=== PATIENT | male | born 1940 | race Caucasian/White ===

== ENCOUNTER 2021-05-08 17:23 | Emergency (ER) | payer MEDICARE ==
[~2021-05-08] VITALS: Ht 182.9 cm; Wt 100.0 kg
[~2021-05-08 17:23] MED LIST: ASPIRIN EC81 MG PO; ATENOLOL25 MG PO; DIGOX0.25 MG PO; DILTIAZEM60 M1 PO; FUROSEMIDE40 MG PO; GLIPIZIDE ER5 MG PO; GLIPIZIDE5 M2 OR; HYDROXYZ HCL25 MG PO; KEFLEX500 MG PO; LEVITRA10 MG PO; LIPITOR20 M1 PO; LISINOPRIL5 MG PO; LOVASTATIN40 MG PO; METFORMIN500 MG PO; ONE TOUCH ULTRA 100 SC; PRILOSEC40 MG PO; SOLU-MEDROL125 MG IM; TRIAMCINOLON0.11 EX; XARELTO20 MG PO
[2021-05-08] MEDS ORDERED: BUMETANIDE1 MG PO (17:45)
[2021-05-08 18:37] LABS: HEMATOCRIT 34.2 % (39.0-50.0); HEMOGLOBIN 11.1 g/dl (14.0-18.0); IMMATURE GRANULOCYTES 0.2 % (0.0-5.0); MEAN CELL VOLUME 94.5 fL CALC (80.0-100.0); MEAN CORPUSCULAR HGB 30.7 pG CALC (26.0-32.0); MEAN CORPUSCULAR HGB CONC 32.5 g/dL CAL (32.0-36.0); NEUT# 8.77 thou/uL (1.82-7.42); RED BLOOD COUNT 3.62 mill/uL (4.70-6.10); RED CELL DISTRI WIDTH 13.5 % (11.5-15.5)
[2021-05-08] MEDS ORDERED: TRESIBA FL100 UNIT/M SC (18:45)
[2021-05-08] MEDS ORDERED: KAPSPARGO SPRIN50 MG PO (18:47)
[2021-05-08 18:48] LABS: ALBUMIN 3.7 g/dL (3.2-5.0); ALKALINE PHOSPHATASE 57 u/l (38-126); ANION GAP 13 (6-22 (CALC)); BILIRUBIN, TOTAL 0.5 mg/dL (0.0-1.4); BUN 38 mg/dL (8-23); BUN/CREATININE RATIO 21 (12-20 (CALC)); CARBON DIOXIDE 28 mmol/l (22-30); CHLORIDE 104 mmol/l (95-108); CREATININE 1.8 mg/dL (0.7-1.3); GFR 37 ML/MIN (>=60 (CALC)); GFR FOR AFR.AMER. 44 ML/MIN (>=60 (CALC)); SGOT/AST 24 u/l (19-48); SODIUM 140 mmol/l (137-146); TOTAL PROTEIN 6.7 g/dL (6.3-8.2)
[2021-05-08] MEDS ORDERED: MEMANTINE HYDRO10 MG PO (18:50)
[2021-05-08] MEDS ORDERED: LOSARTAN POTASS50 MG PO (18:50)
[2021-05-08 18:58] LABS: POTASSIUM 4.6 mmol/l (3.5-5.1)
[2021-05-08 19:00] LABS: MYOGLOBIN 118 ng/mL (0 - 121)
[2021-05-08 22:49] VITALS: BP 122/69
== END 2021-05-08 23:00 | disposition home or self-care (01) ==
LOC: ED 17:23
PROVIDERS: Emergency Medicine
DX: I48.91 Unspecified atrial fibrillation (principal); R60.0 Localized edema; I11.0 Hypertensive heart disease with heart failure; I50.9 Heart failure, unspecified; E11.9 Type 2 diabetes mellitus without complications; E78.5 Hyperlipidemia, unspecified; Z79.84 Long term (current) use of oral hypoglycemic drugs; Z79.4 Long term (current) use of insulin
CPT/HCPCS: Q9967

== ENCOUNTER 2021-10-22 20:27 | Emergency (ER) | payer MEDICARE ==
[2021-10-22] VITALS (12 sets, daily range): BP systolic 114–147; BP diastolic 68–88
[~2021-10-22] VITALS: Ht 182.9 cm; Wt 105.0 kg
[~2021-10-22 20:27] MED LIST changes: +BUMETANIDE1 MG PO; +KAPSPARGO SPRIN50 MG PO; +LOSARTAN POTASS50 MG PO; +MEMANTINE HYDRO10 MG PO; +TRESIBA FL100 UNIT/M SC
[2021-10-22 21:07] LABS: HEMATOCRIT 38.5 % (39.0-50.0); HEMOGLOBIN 12.3 g/dl (14.0-18.0); IMMATURE GRANULOCYTES 0.2 % (0.0-5.0); MEAN CELL VOLUME 96.3 fL CALC (80.0-100.0); MEAN CORPUSCULAR HGB 30.8 pG CALC (26.0-32.0); MEAN CORPUSCULAR HGB CONC 31.9 g/dL CAL (32.0-36.0); NEUT# 6.13 thou/uL (1.82-7.42); RED CELL DISTRI WIDTH 13.9 % (11.5-15.5)
[2021-10-22 21:22] LABS: ALBUMIN 3.8 g/dL (3.2-5.0); ALKALINE PHOSPHATASE 76 u/l (38-126); ANION GAP 12 (6-22 (CALC)); BILIRUBIN, TOTAL 0.6 mg/dL (0.0-1.4); BUN 25 mg/dL (8-23); BUN/CREATININE RATIO 15 (12-20 (CALC)); CARBON DIOXIDE 29 mmol/l (22-30); CHLORIDE 102 mmol/l (95-108); CREATININE 1.6 mg/dL (0.7-1.3); GFR FOR AFR.AMER. 51 ML/MIN (>=60 (CALC)); GFR OTHER RACES 42 ML/MIN (>=60 (CALC)); POTASSIUM 4.1 mmol/l (3.5-5.1); SGOT/AST 18 u/l (19-48); SODIUM 139 mmol/l (137-146); TOTAL PROTEIN 6.8 g/dL (6.3-8.2)
[2021-10-22 21:24] LABS: D-DIMER 0.67 mg/L (0.19-0.60)
[2021-10-22 21:34] LABS: MYOGLOBIN 53 ng/mL (0 - 121)
[2021-10-22 21:38] LABS: ACT PARTIAL THROMBO TIME 26.2 SECONDS (20.0-32.5)
[2021-10-22 22:21] LABS: URINE BILIRUBIN - DIPSTICK NEGATIVE (NEGATIVE); URINE BLOOD DIPSTICK LARGE (NEGATIVE); URINE COLOR YELLOW; URINE GLUCOSE - DIPSTICK >=1000 mg/dL (NEGATIVE); URINE KETONE NEGATIVE (NEGATIVE); URINE LEUK ESTERASE NEGATIVE (NEGATIVE); URINE PH 5.5 (4.5-8.0); URINE PROTEIN - DIPSTICK NEGATIVE (NEG-TRACE); URINE SPECIFIC GRAVITY >=1.030; URINE UROBILINOGEN - DIPSTICK 0.2 E.U./dL (0.2)
[2021-10-22 22:23] LABS: URINE NITRITE - DIPSTICK NEGATIVE (Negative)
[2021-10-22 22:41] LABS: URINE WBC 0-2 WBC/hpf (0-5)
== END 2021-10-22 23:07 | disposition home or self-care (01) ==
LOC: ED 20:27
PROVIDERS: Family Medicine
DX: R60.0 Localized edema (principal); R53.1 Weakness; I11.0 Hypertensive heart disease with heart failure; I50.9 Heart failure, unspecified; E11.9 Type 2 diabetes mellitus without complications; I48.91 Unspecified atrial fibrillation; F03.90 Unspecified dementia, unspecified severity, without behavioral disturbance, psychotic disturbance, mood disturbance, and anxiety; Z79.84 Long term (current) use of oral hypoglycemic drugs; Z79.4 Long term (current) use of insulin; Z20.822 Contact with and (suspected) exposure to COVID-19

== ENCOUNTER 2022-03-23 14:23 | Inpatient (IN) | payer MEDICARE ==
[~2022-03-23] VITALS: Ht 182.9 cm; Wt 96.6 kg
[2022-03-23] VITALS (16 sets, daily range): BP systolic 104–161; BP diastolic 58–87
[2022-03-23 16:49] LABS: HEMATOCRIT 38.6 % (39.0-50.0); HEMOGLOBIN 12.9 g/dl (14.0-18.0); IMMATURE GRANULOCYTES 0.2 % (0.0-5.0); MEAN CORPUSCULAR HGB 30.4 pG CALC (26.0-32.0); MEAN CORPUSCULAR HGB CONC 33.4 g/dL CAL (32.0-36.0); NEUT# 13.04 thou/uL (1.82-7.42); RED BLOOD COUNT 4.24 mill/uL (4.70-6.10); RED CELL DISTRI WIDTH 13.5 % (11.5-15.5)
[2022-03-23 16:58] LABS: ALBUMIN 4.4 g/dL (3.2-5.0); ALKALINE PHOSPHATASE 83 u/l (38-126); ANION GAP 17 (6-22 (CALC)); BILIRUBIN, TOTAL 0.8 mg/dL (0.0-1.4); BUN 26 mg/dL (8-23); BUN/CREATININE RATIO 19 (12-20 (CALC)); CARBON DIOXIDE 26 mmol/l (22-30); CHLORIDE 101 mmol/l (95-108); CREATININE 1.4 mg/dL (0.7-1.3); GFR FOR AFR.AMER. 59 ML/MIN (>=60 (CALC)); GFR OTHER RACES 49 ML/MIN (>=60 (CALC)); POTASSIUM 3.8 mmol/l (3.5-5.1); SGOT/AST 31 u/l (19-48); SODIUM 140 mmol/l (137-146); TOTAL PROTEIN 7.7 g/dL (6.3-8.2)
[2022-03-23 19:12] LABS: URINE BILIRUBIN - DIPSTICK NEGATIVE (NEGATIVE); URINE BLOOD DIPSTICK SMALL (NEGATIVE); URINE COLOR YELLOW; URINE GLUCOSE - DIPSTICK NEGATIVE (NEGATIVE); URINE KETONE NEGATIVE (NEGATIVE); URINE LEUK ESTERASE NEGATIVE (NEGATIVE); URINE PROTEIN - DIPSTICK NEGATIVE (NEG-TRACE); URINE UROBILINOGEN - DIPSTICK 0.2 E.U./dL (0.2)
[2022-03-23 19:14] LABS: URINE NITRITE - DIPSTICK NEGATIVE (Negative)
[2022-03-23 19:21] LABS: URINE RBC 0-2 RBC/hpf (0-5)
[2022-03-24] VITALS (38 sets, daily range): BP systolic 116–156; BP diastolic 60–93
[2022-03-24 05:55] LABS: HEMOGLOBIN 11.6 g/dl (14.0-18.0); MEAN CELL VOLUME 94.5 fL CALC (80.0-100.0); MEAN CORPUSCULAR HGB 30.4 pG CALC (26.0-32.0); MEAN CORPUSCULAR HGB CONC 32.2 g/dL CAL (32.0-36.0); RED BLOOD COUNT 3.81 mill/uL (4.70-6.10); RED CELL DISTRI WIDTH 13.9 % (11.5-15.5)
[2022-03-24 06:55] LABS: ANION GAP 9 (6-22 (CALC)); BUN 23 mg/dL (8-23); BUN/CREATININE RATIO 19 (12-20 (CALC)); CARBON DIOXIDE 29 mmol/l (22-30); CHLORIDE 105 mmol/l (95-108); CREATININE 1.2 mg/dL (0.7-1.3); GFR FOR AFR.AMER. > 60 ML/MIN (>=60 (CALC)); GFR OTHER RACES 58 ML/MIN (>=60 (CALC)); MAGNESIUM 1.6 mg/dL (1.6-2.3); POTASSIUM 3.4 mmol/l (3.5-5.1); SODIUM 140 mmol/l (137-146)
[2022-03-25] VITALS (35 sets, daily range): BP systolic 128–179; BP diastolic 58–107
[2022-03-25 05:47] LABS: HEMATOCRIT 33.7 % (39.0-50.0); HEMOGLOBIN 10.8 g/dl (14.0-18.0); MEAN CELL VOLUME 95.2 fL CALC (80.0-100.0); MEAN CORPUSCULAR HGB 30.5 pG CALC (26.0-32.0); RED BLOOD COUNT 3.54 mill/uL (4.70-6.10); RED CELL DISTRI WIDTH 13.9 % (11.5-15.5)
[2022-03-25 05:55] LABS: ANION GAP 8 (6-22 (CALC)); BUN 14 mg/dL (8-23); BUN/CREATININE RATIO 13 (12-20 (CALC)); CARBON DIOXIDE 30 mmol/l (22-30); CHLORIDE 105 mmol/l (95-108); CREATININE 1.1 mg/dL (0.7-1.3); GFR FOR AFR.AMER. > 60 ML/MIN (>=60 (CALC)); GFR OTHER RACES > 60 ML/MIN (>=60 (CALC)); MAGNESIUM 1.9 mg/dL (1.6-2.3); POTASSIUM 3.6 mmol/l (3.5-5.1); SODIUM 139 mmol/l (137-146)
[2022-03-25] MEDS ORDERED: VITAMIN B-12500 MCG PO (11:36)
[2022-03-25] MEDS ORDERED: PREDNISONE10 MG PO (11:37)
[2022-03-25] MEDS ORDERED: CLOPIDOGREL75 MG PO (11:39)
[2022-03-26] VITALS (11 sets, daily range): BP systolic 117–153; BP diastolic 62–83
[2022-03-26 05:23] LABS: HEMATOCRIT 31.3 % (39.0-50.0); HEMOGLOBIN 10.3 g/dl (14.0-18.0); MEAN CELL VOLUME 93.7 fL CALC (80.0-100.0); MEAN CORPUSCULAR HGB 30.8 pG CALC (26.0-32.0); MEAN CORPUSCULAR HGB CONC 32.9 g/dL CAL (32.0-36.0); RED BLOOD COUNT 3.34 mill/uL (4.70-6.10); RED CELL DISTRI WIDTH 13.7 % (11.5-15.5)
[2022-03-26 05:38] LABS: ANION GAP 6 (6-22 (CALC)); BUN 14 mg/dL (8-23); BUN/CREATININE RATIO 14 (12-20 (CALC)); CARBON DIOXIDE 30 mmol/l (22-30); CHLORIDE 104 mmol/l (95-108); CREATININE 1.1 mg/dL (0.7-1.3); GFR FOR AFR.AMER. > 60 ML/MIN (>=60 (CALC)); GFR OTHER RACES > 60 ML/MIN (>=60 (CALC)); MAGNESIUM 1.9 mg/dL (1.6-2.3); POTASSIUM 3.3 mmol/l (3.5-5.1); SODIUM 136 mmol/l (137-146)
[2022-03-27] VITALS (8 sets, daily range): BP systolic 124–158; BP diastolic 61–78
[2022-03-27 05:46] LABS: HEMOGLOBIN 10.8 g/dl (14.0-18.0); IMMATURE GRANULOCYTES 0.5 % (0.0-5.0); MEAN CELL VOLUME 93.5 fL CALC (80.0-100.0); MEAN CORPUSCULAR HGB 30.6 pG CALC (26.0-32.0); MEAN CORPUSCULAR HGB CONC 32.7 g/dL CAL (32.0-36.0); NEUT# 5.47 thou/uL (1.82-7.42); RED BLOOD COUNT 3.53 mill/uL (4.70-6.10); RED CELL DISTRI WIDTH 13.5 % (11.5-15.5)
[2022-03-27 05:59] LABS: ANION GAP 8 (6-22 (CALC)); BILIRUBIN, TOTAL 0.6 mg/dL (0.0-1.4); BUN 15 mg/dL (8-23); BUN/CREATININE RATIO 14 (12-20 (CALC)); CARBON DIOXIDE 30 mmol/l (22-30); CHLORIDE 104 mmol/l (95-108); GFR FOR AFR.AMER. > 60 ML/MIN (>=60 (CALC)); GFR OTHER RACES > 60 ML/MIN (>=60 (CALC)); MAGNESIUM 1.8 mg/dL (1.6-2.3); POTASSIUM 3.6 mmol/l (3.5-5.1); SGOT/AST 26 u/l (19-48); SODIUM 139 mmol/l (137-146)
[2022-03-27 06:05] LABS: ALBUMIN 2.8 g/dL (3.2-5.0); ALKALINE PHOSPHATASE 140 u/l (38-126); TOTAL PROTEIN 5.2 g/dL (6.3-8.2)
[2022-03-28] VITALS (7 sets, daily range): BP systolic 121–151; BP diastolic 57–71
[2022-03-28 05:10] LABS: HEMATOCRIT 32.2 % (39.0-50.0); HEMOGLOBIN 10.5 g/dl (14.0-18.0); MEAN CELL VOLUME 93.6 fL CALC (80.0-100.0); MEAN CORPUSCULAR HGB 30.5 pG CALC (26.0-32.0); MEAN CORPUSCULAR HGB CONC 32.6 g/dL CAL (32.0-36.0); RED BLOOD COUNT 3.44 mill/uL (4.70-6.10); RED CELL DISTRI WIDTH 13.1 % (11.5-15.5)
[2022-03-28 05:26] LABS: ANION GAP 7 (6-22 (CALC)); BUN 16 mg/dL (8-23); BUN/CREATININE RATIO 14 (12-20 (CALC)); CARBON DIOXIDE 31 mmol/l (22-30); CHLORIDE 104 mmol/l (95-108); CREATININE 1.1 mg/dL (0.7-1.3); GFR FOR AFR.AMER. > 60 ML/MIN (>=60 (CALC)); GFR OTHER RACES > 60 ML/MIN (>=60 (CALC)); MAGNESIUM 1.8 mg/dL (1.6-2.3); POTASSIUM 3.9 mmol/l (3.5-5.1); SODIUM 138 mmol/l (137-146)
[2022-03-28 05:27] LABS: DIGOXIN 0.5 ng/mL (0.8-2.0)
[2022-03-29 04:00] VITALS: BP 130/63
[2022-03-29 04:11] VITALS: BP 130/63
[2022-03-29 07:11] VITALS: BP 141/76
[2022-03-29 11:09] VITALS: BP 151/77
[2022-03-29 14:20] VITALS: BP 143/76
[2022-03-29 19:13] VITALS: BP 116/63
[2022-03-30] VITALS: BP 132/54
[2022-03-30 04:29] VITALS: BP 133/74
[2022-03-30 05:25] LABS: HEMATOCRIT 31.3 % (39.0-50.0); HEMOGLOBIN 10.2 g/dl (14.0-18.0); IMMATURE GRANULOCYTES 0.7 % (0.0-5.0); MEAN CELL VOLUME 92.6 fL CALC (80.0-100.0); MEAN CORPUSCULAR HGB 30.2 pG CALC (26.0-32.0); MEAN CORPUSCULAR HGB CONC 32.6 g/dL CAL (32.0-36.0); NEUT# 5.45 thou/uL (1.82-7.42); RED BLOOD COUNT 3.38 mill/uL (4.70-6.10); RED CELL DISTRI WIDTH 13.2 % (11.5-15.5)
[2022-03-30 05:51] LABS: ANION GAP 10 (6-22 (CALC)); BUN 17 mg/dL (8-23); BUN/CREATININE RATIO 13 (12-20 (CALC)); CARBON DIOXIDE 30 mmol/l (22-30); CHLORIDE 102 mmol/l (95-108); CREATININE 1.3 mg/dL (0.7-1.3); GFR FOR AFR.AMER. > 60 ML/MIN (>=60 (CALC)); GFR OTHER RACES 53 ML/MIN (>=60 (CALC)); SODIUM 138 mmol/l (137-146)
[2022-03-30 06:41] VITALS: BP 133/74
[2022-03-30 09:12] VITALS: BP 110/56
[2022-03-30] MEDS ORDERED: KEFLEX500 MG PO (09:24)
[2022-03-30] MEDS ORDERED: LEVAQUIN750 M1 PO (09:24)
[2022-03-30] MEDS ORDERED: TRAMADOL HCL50 MG PO (09:25)
[2022-03-30 10:15] VITALS: BP 110/56
== END 2022-03-30 13:45 | disposition home health service (06) | DRG 872 ==
LOC: ED 14:23 → MS2 18:54 → ICU 20:50 → MS2 03-25 14:30
PROVIDERS: Family Medicine; Internal Medicine; Nurse Practitioner Family; ADMIT Internal Medicine; ATTEND Internal Medicine
DX: A41.53 Sepsis due to Serratia (principal); L03.115 Cellulitis of right lower limb; E87.20 Acidosis, unspecified; L97.919 Non-pressure chronic ulcer of unspecified part of right lower leg with unspecified severity; I50.32 Chronic diastolic (congestive) heart failure; I13.0 Hypertensive heart and chronic kidney disease with heart failure and stage 1 through stage 4 chronic kidney disease, or unspecified chronic kidney disease; I48.19 Other persistent atrial fibrillation; E11.22 Type 2 diabetes mellitus with diabetic chronic kidney disease; N18.30 Chronic kidney disease, stage 3 unspecified; E11.649 Type 2 diabetes mellitus with hypoglycemia without coma; E78.5 Hyperlipidemia, unspecified; F03.90 Unspecified dementia, unspecified severity, without behavioral disturbance, psychotic disturbance, mood disturbance, and anxiety; I35.1 Nonrheumatic aortic (valve) insufficiency; M35.3 Polymyalgia rheumatica; I89.0 Lymphedema, not elsewhere classified; G47.33 Obstructive sleep apnea (adult) (pediatric); B95.61 Methicillin susceptible Staphylococcus aureus infection as the cause of diseases classified elsewhere; Z79.84 Long term (current) use of oral hypoglycemic drugs; Z79.4 Long term (current) use of insulin; Z95.818 Presence of other cardiac implants and grafts; Z79.52 Long term (current) use of systemic steroids; Z86.16 Personal history of COVID-19; Z20.822 Contact with and (suspected) exposure to COVID-19
CPT/HCPCS: J0131; J0692; J1160; J1650

== ENCOUNTER 2022-11-16 06:10 | Day surgery (SDC) | payer MEDICARE ==
[~2022-11-16] VITALS: Ht 182.9 cm; Wt 92.5 kg
[~2022-11-16 06:10] MED LIST changes: +CLOPIDOGREL75 MG PO; +LEVAQUIN750 M1 PO; +PREDNISONE10 MG PO; +TRAMADOL HCL50 MG PO; +VITAMIN B-12500 MCG PO
[2022-11-16 10:58] VITALS: BP 140/67
== END 2022-11-16 10:45 | disposition home or self-care (01) ==
LOC: ENDO 06:10 → ORM 06:10
PROVIDERS: ATTEND Orthopaedic Surgery
PROC: 0RRJ00Z Replacement of Right Shoulder Joint with Reverse Ball and Socket Synthetic Substitute, Open Approach (ICD-10-PCS; principal; 2022-11-16)
PROC: 0LS30ZZ Reposition Right Upper Arm Tendon, Open Approach (ICD-10-PCS; 2022-11-16)
DX: M75.121 Complete rotator cuff tear or rupture of right shoulder, not specified as traumatic (principal); S43.431A Superior glenoid labrum lesion of right shoulder, initial encounter; S46.211A Strain of muscle, fascia and tendon of other parts of biceps, right arm, initial encounter; M19.011 Primary osteoarthritis, right shoulder; X58.XXXA Exposure to other specified factors, initial encounter; M19.012 Primary osteoarthritis, left shoulder; M75.112 Incomplete rotator cuff tear or rupture of left shoulder, not specified as traumatic; E11.9 Type 2 diabetes mellitus without complications; I10 Essential (primary) hypertension; Z79.84 Long term (current) use of oral hypoglycemic drugs
CPT/HCPCS: J0690

== ENCOUNTER 2023-12-09 10:18 | Emergency (ER) | payer MEDICARE ==
[~2023-12-09] VITALS: Ht 182.9 cm; Wt 95.2 kg
[2023-12-09] VITALS (7 sets, daily range): BP systolic 119–141; BP diastolic 62–112
[2023-12-09 10:47] LABS: BASO% 0.3 % (0-3); EOS% 2.1 % (0-8); HEMATOCRIT 37.9 % (39.0-50.0); HEMOGLOBIN 12.5 g/dl (14.0-18.0); IMMATURE GRANULOCYTES 0.1 % (0.0-5.0); LYMPH% 21.6 % (15-41); MEAN CELL VOLUME 95.7 fL CALC (80.0-100.0); MEAN CORPUSCULAR HGB 31.6 pG CALC (26.0-32.0); MONO% 8.5 % (2-13); NEUT# 5.18 thou/uL (1.82-7.42); NEUT% 67.4 % (42-76); RED BLOOD COUNT 3.96 mill/uL (4.70-6.10); RED CELL DISTRI WIDTH 13.1 % (11.5-15.5)
[2023-12-09 11:02] LABS: ALBUMIN 3.9 g/dL (3.2-5.0); ALKALINE PHOSPHATASE 113 u/l (38-126); ANION GAP 7 (6-22 (CALC)); BILIRUBIN, TOTAL 0.7 mg/dL (0.2-1.3); BUN 29 mg/dL (8-23); BUN/CREATININE RATIO 22 (12-20 (CALC)); CARBON DIOXIDE 28 mmol/l (22-30); CHLORIDE 109 mmol/l (95-108); CREATININE 1.3 mg/dL (0.7-1.3); ESTIMATED GFR 55 ML/MIN (>=90 (CALC)); POTASSIUM 4.2 mmol/l (3.5-5.1); SGOT/AST 26 u/l (19-48); SODIUM 139 mmol/l (137-146); TOTAL PROTEIN 6.9 g/dL (6.3-8.2)
== END 2023-12-09 14:41 | disposition home or self-care (01) ==
LOC: ED 10:18
PROVIDERS: Family Medicine
DX: I27.20 Pulmonary hypertension, unspecified (principal); I11.0 Hypertensive heart disease with heart failure; I50.9 Heart failure, unspecified; E11.9 Type 2 diabetes mellitus without complications; E78.5 Hyperlipidemia, unspecified; I48.91 Unspecified atrial fibrillation; F03.90 Unspecified dementia, unspecified severity, without behavioral disturbance, psychotic disturbance, mood disturbance, and anxiety; Z79.4 Long term (current) use of insulin; Z72.0 Tobacco use; Z20.822 Contact with and (suspected) exposure to COVID-19
CPT/HCPCS: Q9967

== ENCOUNTER 2024-07-27 19:58 | Observation (INO) | payer MEDICARE ==
[~2024-07-27] VITALS: Ht 182.9 cm; Wt 94.9 kg
[~2024-07-27 19:58] MED LIST changes: -TRESIBA FL100 UNIT/M SC; +TRESIBA FL200 UNIT/M
[2024-07-27 20:16] VITALS: BP 158/92
[2024-07-27] MEDS ORDERED: DOXYCYCLINE HYCLATE 100 MG in SODIUM CHLORIDE 0.9% 100 ML IV ONE (20:20)
[2024-07-27 20:31] VITALS: BP 144/82
[2024-07-27 20:40] LABS: BASO% 0.3 % (0-3); EOS% 1.2 % (0-8); HEMATOCRIT 39.1 % (39.0-50.0); HEMOGLOBIN 12.8 g/dl (14.0-18.0); IMMATURE GRANULOCYTES 0.1 % (0.0-5.0); MEAN CELL VOLUME 96.1 fL CALC (80.0-100.0); MEAN CORPUSCULAR HGB 31.4 pG CALC (26.0-32.0); MEAN CORPUSCULAR HGB CONC 32.7 g/dL CAL (32.0-36.0); MONO% 8.2 % (2-13); NEUT# 6.3 thou/uL (1.82-7.42); NEUT% 83.2 % (42-76); RED BLOOD COUNT 4.07 mill/uL (4.70-6.10); RED CELL DISTRI WIDTH 12.8 % (11.5-15.5)
[2024-07-27 20:58] LABS: ACT PARTIAL THROMBO TIME 27.2 SECONDS (20.0-32.5); ALBUMIN 4.3 g/dL (3.2-5.0); ALKALINE PHOSPHATASE 112 u/l (38-126); ANION GAP 11 (6-22 (CALC)); BILIRUBIN, TOTAL 1.1 mg/dL (0.2-1.3); BUN 26 mg/dL (8-23); BUN/CREATININE RATIO 18 (12-20 (CALC)); CARBON DIOXIDE 32 mmol/l (22-30); CHLORIDE 101 mmol/l (95-108); CREATININE 1.4 mg/dL (0.7-1.3); ESTIMATED GFR 50 ML/MIN (>=90 (CALC)); INTERNATIONAL NORMALIZED RATIO 1.1 RATIO (0.7-1.3); POTASSIUM 4.2 mmol/l (3.5-5.1); SGOT/AST 26 u/l (19-48); SODIUM 139 mmol/l (137-146); TOTAL PROTEIN 7.3 g/dL (6.3-8.2)
[2024-07-27 20:59] LABS: PROTHROMBIN TIME 11.4 SECONDS (9.0-12.5)
[2024-07-27 21:01] VITALS: BP 134/70
[2024-07-27] MEDS ORDERED: ACETAMINOPHEN 325 MG/TAB PO PRN (22:30)
[2024-07-27] MEDS ORDERED: MAGNESIUM HYDROXIDE 30 ML UDC PO PRN (22:30)
[2024-07-27] MEDS ORDERED: SODIUM CHLORIDE 0.9% 1,000 ML IV PRN (22:30)
[2024-07-27 23:03] LABS: URINE BILIRUBIN - DIPSTICK Negative (NEGATIVE); URINE BLOOD DIPSTICK Small (NEGATIVE); URINE COLOR Yellow; URINE GLUCOSE - DIPSTICK Negative (NEGATIVE); URINE KETONE Negative (NEGATIVE); URINE LEUK ESTERASE Negative (NEGATIVE); URINE NITRITE - DIPSTICK Negative (Negative); URINE PROTEIN - DIPSTICK Negative (NEG-TRACE); URINE SPECIFIC GRAVITY 1.015; URINE UROBILINOGEN - DIPSTICK 0.2 E.U./dL (0.2)
[2024-07-27 23:10] LABS: URINE MUCUS RARE hpf (NONE-FEW); URINE RBC 0-2 RBC/hpf (0-5)
[2024-07-28] VITALS (7 sets, daily range): BP systolic 140–171; BP diastolic 70–91
[2024-07-28] MEDS ORDERED: DEXTROSE 250 ML IV PRN (07:30)
[2024-07-28] MEDS ORDERED: METOPROLOL SUCC50 MG PO (07:35)
[2024-07-28] MEDS ORDERED: ASPIRIN EC 81 MG/TAB PO SCH (09:00)
[2024-07-28] MEDS ORDERED: METOPROLOL SUCCINATE 50 MG/TAB PO SCH (09:00)
[2024-07-28] MEDS ORDERED: CLOPIDOGREL BISULFATE 75 MG/TAB TAB PO SCH (09:00)
[2024-07-28] MEDS ORDERED: BUMETANIDE 1 MG/TAB PO SCH (09:00)
[2024-07-28] MEDS ORDERED: FARXIGA10 MG PO (09:26)
[2024-07-28] MEDS ORDERED: BUPROPION150 M3 PO (09:27)
[2024-07-28] MEDS ORDERED: OZEMPIC2 MG (09:28)
[2024-07-28] MEDS ORDERED: DONEPEZIL10 MG PO (09:28)
[2024-07-28] MEDS ORDERED: DOXYCYCLINE HYCLATE 100 MG in SODIUM CHLORIDE 0.9% 100 ML IV SCH (11:00)
[2024-07-28] MEDS ORDERED: INSULIN LISPRO 100 UNITS/ML ML SC SCH (11:00)
[2024-07-28] MEDS ORDERED: BUMETANIDE 1 MG/4 ML VIAL IV SCH (14:00)
[2024-07-28] MEDS ORDERED: INSULIN GLARGINE 100 UNITS/ML SC SCH (15:00)
[2024-07-28] MEDS ORDERED: buPROPion HCL 150 MG TAB SR PO SCH (18:16)
[2024-07-28] MEDS ORDERED: LABETALOL HCL 20 MG/ 4 ML CARTRG IV PRN (18:20)
[2024-07-28] MEDS ORDERED: LABETALOL HCL 20 MG/ 4 ML CARTRG IV SCH (18:26)
[2024-07-28] MEDS ORDERED: MEMANTINE Hydrochloride 10 MG/TAB PO SCH (21:00)
[2024-07-28] MEDS ORDERED: ENOXAPARIN SODIUM 40 MG/0.4 ML SYR SC SCH (21:00)
[2024-07-29] VITALS (10 sets, daily range): BP systolic 111–135; BP diastolic 50–68
[2024-07-29 05:05] LABS: BASO% 0.4 % (0-3); HEMATOCRIT 35.2 % (39.0-50.0); HEMOGLOBIN 11.4 g/dl (14.0-18.0); IMMATURE GRANULOCYTES 0.4 % (0.0-5.0); MEAN CELL VOLUME 96.4 fL CALC (80.0-100.0); MEAN CORPUSCULAR HGB 31.2 pG CALC (26.0-32.0); MEAN CORPUSCULAR HGB CONC 32.4 g/dL CAL (32.0-36.0); MONO% 13.9 % (2-13); NEUT# 3.88 thou/uL (1.82-7.42); NEUT% 70.3 % (42-76); RED BLOOD COUNT 3.65 mill/uL (4.70-6.10); RED CELL DISTRI WIDTH 13.1 % (11.5-15.5)
[2024-07-29 05:33] LABS: BILIRUBIN, TOTAL 0.8 mg/dL (0.2-1.3); CREATININE 1.4 mg/dL (0.7-1.3); MAGNESIUM 1.6 mg/dL (1.6-2.3); POTASSIUM 3.8 mmol/l (3.5-5.1); TOTAL PROTEIN 6.1 g/dL (6.3-8.2)
[2024-07-29 05:35] LABS: ALBUMIN 3.3 g/dL (3.2-5.0)
[2024-07-30 03:32] VITALS: BP 139/75
[2024-07-30 05:15] LABS: BASO% 0.4 % (0-3); EOS% 0.8 % (0-8); HEMATOCRIT 37.2 % (39.0-50.0); HEMOGLOBIN 12.2 g/dl (14.0-18.0); MEAN CELL VOLUME 96.9 fL CALC (80.0-100.0); MEAN CORPUSCULAR HGB 31.8 pG CALC (26.0-32.0); MEAN CORPUSCULAR HGB CONC 32.8 g/dL CAL (32.0-36.0); MONO% 14.9 % (2-13); NEUT# 2.98 thou/uL (1.82-7.42); NEUT% 58.9 % (42-76); RED BLOOD COUNT 3.84 mill/uL (4.70-6.10)
[2024-07-30 05:33] LABS: ALBUMIN 3.3 g/dL (3.2-5.0); BILIRUBIN, TOTAL 0.8 mg/dL (0.2-1.3); CREATININE 1.4 mg/dL (0.7-1.3); MAGNESIUM 1.6 mg/dL (1.6-2.3); POTASSIUM 3.4 mmol/l (3.5-5.1); TOTAL PROTEIN 6.1 g/dL (6.3-8.2)
[2024-07-30 06:03] VITALS: BP 144/75
[2024-07-30 09:02] VITALS: BP 126/63
[2024-07-30 10:04] VITALS: BP 126/63
[2024-07-30] MEDS ORDERED: VANTIN200 M1 PO (11:59)
[2024-07-30] MEDS ORDERED: VIBRAMYCIN100 M2 PO (11:59)
== END 2024-07-30 14:10 | disposition home or self-care (01) ==
LOC: ED 19:58 → ED-I 22:12 → ED 22:29 → MS2 22:30
PROVIDERS: Emergency Medicine; Internal Medicine; Nurse Practitioner Family; ADMIT Internal Medicine; ATTEND Internal Medicine
DX: U07.1 COVID-19 (principal); J12.82 Pneumonia due to coronavirus disease 2019; I13.0 Hypertensive heart and chronic kidney disease with heart failure and stage 1 through stage 4 chronic kidney disease, or unspecified chronic kidney disease; I50.22 Chronic systolic (congestive) heart failure; E11.22 Type 2 diabetes mellitus with diabetic chronic kidney disease; N18.30 Chronic kidney disease, stage 3 unspecified; I48.19 Other persistent atrial fibrillation; G30.9 Alzheimer's disease, unspecified; F02.80 Dementia in other diseases classified elsewhere, unspecified severity, without behavioral disturbance, psychotic disturbance, mood disturbance, and anxiety; E78.5 Hyperlipidemia, unspecified; M35.3 Polymyalgia rheumatica; I35.1 Nonrheumatic aortic (valve) insufficiency; G47.33 Obstructive sleep apnea (adult) (pediatric); Z79.84 Long term (current) use of oral hypoglycemic drugs; Z95.818 Presence of other cardiac implants and grafts; Z95.810 Presence of automatic (implantable) cardiac defibrillator; Z79.82 Long term (current) use of aspirin; Z79.52 Long term (current) use of systemic steroids
CPT/HCPCS: J0696; J1650; J1815; J1939